=== PATIENT | male | born 1985 | race Caucasian/White ===

== ENCOUNTER 2017-04-19 10:10 | Emergency (ER) | payer MEDICAID ==
[~2017-04-19] VITALS: Ht 172.7 cm; Wt 81.8 kg
[2017-04-19] MEDS ORDERED: IBUPROFEN 800 MG TABLET PO ONE (11:00)
[2017-04-19 12:19] VITALS: BP 137/85
== END 2017-04-19 12:39 | disposition home or self-care (01) ==
LOC: EMS 10:15
DX: S60.221A Contusion of right hand, initial encounter (principal); R03.0 Elevated blood-pressure reading, without diagnosis of hypertension; F12.90 Cannabis use, unspecified, uncomplicated; W22.8XXA Striking against or struck by other objects, initial encounter; Y93.89 Activity, other specified; Y92.89 Other specified places as the place of occurrence of the external cause; Y99.8 Other external cause status
CPT/HCPCS: 99284